=== PATIENT | female | born 1980 | race Caucasian/White ===

== ENCOUNTER → 2019-01-04 | Outpatient (REF) ==
--- NOTE | 2019-01-04 14:51 | REP ---
PARTIAL LUMBAR SPINE, THREE VIEWS: HISTORY: Degenerative disc disease. There is no acute fracture. The L4-5 and L5-S1 intervertebral discs are decreased in height consistent with disc degeneration. There are 6 mm of grade 1 spondylolisthesis of L5 on S1. This is associated with L5 pars defects. IMPRESSION: Degenerative change as described above. Electronically Signed by Yuri Bishop MD 01/04/2019 02:57 P
== END ==
LOC: M SMT 13:59
PROVIDERS: ATTEND Internal Medicine
DX: M51.36 Other intervertebral disc degeneration, lumbar region (principal); M43.17 Spondylolisthesis, lumbosacral region

== ENCOUNTER → 2020-11-11 | Outpatient (CLI) | payer OTHER ==
--- NOTE | 2020-11-14 01:02 | ECWPNPC ---
PATIENT NAME: DELMA SIMMONS : 1980 GENDER: FEMALE VISIT DATE: 11/11/2020 DISCHARGE DATE: 11/11/20921 VISIT LOCKED DATE TIME: PHYSICIAN: ANJANA BARROS RESOURCE: ANJANA BARROS REASON FOR APPOINTMENT 1. NEUROPATHY HISTORY OF PRESENT ILLNESS GENERAL: PLEASANT 40-YEAR-OLD FEMALE BEING REFERRED BY [facility], MELISSA HATFIELD FOR NEUROPATHIC PAIN OF THE LOWER EXTREMITIES WITH A HISTORY OF DIABETES MELLITUS. CURRENTLY TAKING GABAPENTIN 800 MG 4 TIMES A DAY AND LYRICA 75 MG AT BEDTIME. CONTINUES TO HAVE SEVERE LOWER EXTREMITY PAIN DESPITE MEDICATIONS. REPORTING NIGHTTIME AWAKENINGS DUE TO PAIN. ALSO SUFFERING FROM EYE ISSUES OF WHICH SHE HAS TO SEE A SPECIALIST TOMORROW SHE IS HAVING POOR VISION. ALSO REPORTING SOME FLUID RETENTION ISSUES IN THE LOWER EXTREMITIES. DENIES BOWEL OR BLADDER INCONTINENCE. HAS INSULIN PUMP. FOLLOWS WITH ENDOCRINOLOGY. FALL RISK SCREENING: SCREENING :ONE FALL WITHOUT INJURY IN THE PAST YEAR PAIN SCREENING: PATIENT HAS A COMPLAINT OF ACUTE OR CHRONIC PAIN :YES LOCATION OF PAIN:LEG(S) BOTH LEGS INTENSITY OF PAIN (SCALE OF 1 TO 10):5 WHAT DOES YOUR PAIN FEEL LIKE:ACHING, BURNING, STABBING, THROBBING, SHOOTING DURATION:CONTINOUS, CONSTANT, ALL DAY PAIN IS INCREASED BY:ACTIVITIES PAIN IS DECREASED BY:USE OF PAIN MEDICATIONS NURSING NOTE: - - -. PAIN CENTER INTAKE QUESTIONS: DO YOU HAVE A HISTORY OF MRSA? :NO DO YOU TAKE A BLOOD THINNERS? :NO DO YOU HAVE ANY BLEEDING DISORDERS? :NO ANY NEW NUMBNESS OR WEAKNESS IN YOUR LEGS OR ARMS? :NO ANY PACEMAKER,DEFIBRILLATOR, OR DORSAL COLUMN STIMULATOR? :NO DO YOU HAVE ANY RASHES OR OPEN SORES? :NO ARE YOU ALLERGIC TO IV DYE? :NO ARE YOU DIABETIC? :YES ANY NEW PROBLEMS WITH YOUR MEDICATIONS? :NO HAVE YOU RECEIVED A VACCINE IN THE PAST 30 DAYS? :NO DO YOU PLAN TO RECEIVE A VACCINE IN THE NEXT 21 DAYS? :NO DO YOU NEED ANY PRESCRIPTION? :NO DO YOU TAKE ANY IMMUNOSUPPRESSIVE MEDICATIONS? :NO CURRENT MEDICATIONS TAKING PRAVASTATIN SODIUM 40 MG TABLET 1 TABLET ORALLY ONCE A DAY TAKING FERROUS SULFATE 325 (65 FE) MG TABLET 1 TABLET ORALLY TID TAKING OMEPRAZOLE 40 MG CAPSULE DELAYED RELEASE 1 CAPSULE ORALLY BID TAKING ASPIRIN 81 81 MG TABLET DELAYED RELEASE 1 TABLET ORALLY ONCE A DAY TAKING FLUOXETINE HCL 60 MG TABLET 1 TABLET ORALLY ONCE A DAY TAKING LYRICA 75 MG CAPSULE 1 CAPSULE ORALLY BID TAKING GABAPENTIN 800 MG TABLET 1 TABLET ORALLY FOUR TIMES DAILY TAKING ADMELOG 100 UNIT/ML SOLUTION DIRECTED SUBCUTANEOUS UP TO 100 UNITS DAILY THROUGH INSULIN PUMP NOT-TAKING CYANOCOBALAMIN 1000 MCG TABLET 1 TABLET ORALLY ONCE A DAY NOT-TAKING PYRIDOXINE HCL 50 MG TABLET 1 TABLET ORALLY DAILY MEDICATION LIST REVIEWED AND RECONCILED WITH THE PATIENT PAST MEDICAL HISTORY DIABETES DIABETIC NEUROPATHY HEADACHES OVARIAN CYSTS ENDOMETREOSIS ANEMIA DENTAL CARIES ALLERGIES N.K.D.A. SURGICAL HISTORY EYE SURGERY (CYST IN LEFT EYE X2) CHOLECYSTECTOMY CYSTS ON OVARIES REMOVED BILATERAL TUBAL LIGATION 26 TEETH PULLED 06/2019 FAMILY HISTORY FATHER: , LUNG CANCER MOTHER: ALIVE, DEPRESSION, DIAGNOSED WITH DIABETES, HYPERTENSION SON(S): ALIVE DAUGHTER(S): ALIVE 2 BROTHER(S) , 2 SISTER(S) - HEALTHY. 1 SON(S) , 1 DAUGHTER(S) - HEALTHY. SON - HTN. SOCIAL HISTORY GENERAL: TOBACCO USE ARE YOU A:FORMER SMOKER LATEX QUESTIONNAIRE LATEX ALLERGY : HAVE YOU EVER DEVELOPED ANY TYPE OF REACTION AFTER HANDLING LATEX PRODUCTS SUCH RUBBER GLOVES, CONDOMS, DIAPHRAGMS, BALLOONS, SOCKS, OR UNDERWEAR?NO LATEX ALLERGY : HAVE YOU EVER DEVELOPED ANY TYPE OF REACTION DURING OR AFTER DENTAL APPOINTMENT, VAGINAL/RECTAL EXAMINATION, SURGICAL PROCEDURE, OR ANY OTHER EXPOSURE?NO LATEX RISK : HAVE YOU EVER HAD ANY DIFFICULTY BREATHING OR HIVES AFTER EATING OR HANDLING ANY FRUITS, OR VEGETABLES; SUCH KIWI, BANANAS, STONE FRUITS, OR CHESTNUTSNO LATEX RISK : DO YOU HAVE A PREVIOUS PERSONAL HISTORY OF MORE THAN NINE SURGERIES, SPINA BIFIDA, OR REPEATED CATHERIZATIONS? NO LATEX RISK : ARE YOU FREQUENTLY EXPOSED TO LATEX PRODUCTS IN YOUR OCCUPATION?NO DATE ASKED : 11/11/2020 ALCOHOL USE: NO. RECREATIONAL DRUG USE DRUG USE?NO LANGUAGE LANGUAGES SPOKEN:JAPANESE LEARNING BARRIERS / SPECIAL NEEDS BARRIERS TO LEARNING?NO HEARING IMPAIRED?NO VISION IMPAIRED?YES :CORRECTIVE LENSES COGNITIVELY IMPAIRED?NO READINESS TO LEARN?YES LEARNING PREFERENCES?YES :DEMONSTRATION/VERBAL INSTRUCTION LEARNING CAPABILITIES PRESENT?YES EMOTIONAL BARRIERS?NO SPECIAL DEVICES?YES :CANE FLOOR CLEANER NEEDED?NO MARITAL STATUS: . HOSPITALIZATION/MAJOR DIAGNOSTIC PROCEDURE SURGERY RELATED CHILD REVIEW OF SYSTEMS CONSTITUTIONAL: ANY RECENT FEVER NO . CHILLS NO . WEIGHT CHANGE OF UNKNOWN REASONS NO . GASTROENTEROLOGY: NEW UNEXPLAINABLE CHANGES IN BOWEL CONTROL NO . CONSTIPATION NO . GENITOURINARY: ANY NEW CHANGE IN BLADDER CONTROL? NO . NEUROLOGY: NEW ONSET DIZZINESS OR NEUROLOGICAL CHANGES NOT MENTIONED NO . NEW NUMBNESS OR PAIN PATTERNS NOT MENTIONED AND PERTINENT TO TODAY'S VISIT NO . CARDIOLOGY: NEW CHEST PRESSURE NO . NEW CHEST PAIN NO . RESPIRATORY: UNEXPLAINABLE COUGH NO . NEW SHORTNESS OF BREATH NO . VITAL SIGNS WT 244 LBS, HT 5'4, BMI 47.65 INDEX, BP 130/60 MM HG, HR 78 /MIN, RR 18 /MIN, TEMP 94 F, OXYGEN SAT % 98, SAFE IN ENV? (Y/N) YEST.CORINE ESCALERA. EXAMINATION GENERAL EXAMINATION: GENERALNO ACUTE DISTRESS, WELL NOURISHED AND HYDRATED. PSYCHAPPROPRIATE MOOD AND AFFECT . FACE:UNREMARKABLE. NECK:NO LYMPHADENOPATHY, SUPPLE. LUNGS:CLEAR TO AUSCULTATION BILATERALLY, NO WHEEZES, RHONCHI, RALES. HEART:NO MURMURS, REGULAR RATE AND RHYTHM. MUSCULOSKELETAL:WEAKNESS NOTED OVER LOWER EXTREMITIES. WALKS WITH ASSIST OF CANE . EXTREMITIES:1+ EDEMA NOTED OVER LOWER EXTREMITIES . NEUROLOGIC EXAM:REPORTS TENDERNESS OVER LOWER EXTREMITIES . ASSESSMENTS DIABETIC PERIPHERAL NEUROPATHY - E11.42 (PRIMARY) TREATMENT DIABETIC PERIPHERAL NEUROPATHY INCREASE LYRICA CAPSULE, 75 MG, 1 CAPSULE, ORALLY, Q8H TID, 30 DAYS, 90, REFILLS 2 DECREASE GABAPENTIN TABLET, 800 MG, 1 TABLET, ORALLY, TID, 30 DAYS, 90 TABLET, REFILLS 2 NOTES: I HAVE AGREED TO TAKE OVER MEDICATION MANAGEMENT. ADVISED TO DECREASE GABAPENTIN TO 800 MG 3 TIMES A DAY. ADVISED TO SLOWLY INCREASE LYRICA 75 MG 3 TIMES DAILY. START WITH INCREASING TO MORNING AND NIGHT X10 DAYS THEN INCREASE TO 3 TIMES DAILY IF TOLERATED. ADVISED TO CALL OUR OFFICE WITH ANY PROBLEMS. PROCEDURE CODES FA211 ESTABILISHED PATIENT [facility] CHARGE DISPOSITION & COMMUNICATION FOLLOW UP 10 WKS (REASON: MEDICATION MANAGEMENT FOLLOW-UP AFTER INCREASING LYRICA 75 MG AND DECREASING GABAPENTIN 800 MG/DIABETIC PERIPHERAL NEUROPATHY) ELECTRONICALLY SIGNED BY PERRY COLLINS ON 11/13/2020 AT 08:19 PM EST DISCLAIMER : THIS IS A VISIT SUMMARY EXTRACTED FROM THE [employer] CHART. IT IS NOT A COPY OF THE [employer] PROGRESS NOTE. WARNER
== END ==
LOC: M PAIN 08:30
PROVIDERS: ATTEND Nurse Practitioner Family
DX: E11.42 Type 2 diabetes mellitus with diabetic polyneuropathy (principal); R51.9 Headache, unspecified; D64.9 Anemia, unspecified; Z79.82 Long term (current) use of aspirin; Z79.899 Other long term (current) drug therapy; Z87.891 Personal history of nicotine dependence

== ENCOUNTER 2020-12-03 16:16 | Emergency (ER) | payer OTHER ==
[~2020-12-03] VITALS: Ht 162.6 cm; Wt 111.0 kg
[2020-12-03] MEDS ORDERED: PREG75CA2 (16:26)
[2020-12-03] MEDS ORDERED: FLUO20CA22 (16:26)
[2020-12-03] MEDS ORDERED: GABA600T4 (16:26)
[2020-12-03] MEDS ORDERED: HM V5000 PO (16:26)
[2020-12-03] MEDS ORDERED: ADME100I (16:26)
[2020-12-03] MEDS ORDERED: VITA100T43 PO (16:26)
[2020-12-03] MEDS ORDERED: ASPI81TA26 PO (16:26)
[2020-12-03] MEDS ORDERED: OMEP-221 (16:26)
--- NOTE | 2020-12-03 17:02 | REP ---
INDICATION: pain, swelling, nki COMPARISON: None. TECHNIQUE: AP and lateral views of the left forearm. FINDINGS: No acute fracture or dislocation. No subcutaneous emphysema or foreign body. IMPRESSION: No obvious abnormality by radiographic evaluation. No acute fracture or dislocation. <Electronically signed by Jesus Hartley > 12/03/20 [id number]
--- NOTE | 2020-12-03 18:05 | REPVR ---
PROCEDURE INFORMATION: Exam: US Duplex Left Upper Extremity Veins, Limited Exam date and time: 12/03/2020 5:49 PM Age: 40 years old Clinical indication: Pain; Arm, upper; Left; Additional info: Tingling, swelling pain arm, RO clot TECHNIQUE: Imaging protocol: Real-time Duplex ultrasound of the Left Upper Extremity with 2-D jay scale, color Doppler flow and spectral waveform analysis with image documentation. Limited exam focused on the left upper extremity veins. COMPARISON: No relevant prior studies available. FINDINGS: Left deep veins: Internal jugular, subclavian, axillary and brachial veins patent without thrombus. Normal compressibility, augmentation response and/or Doppler waveforms. Left superficial veins: Visualized cephalic and basilic veins patent without thrombus. Soft tissues: Unremarkable. IMPRESSION: No sonographic evidence of deep vein thrombosis. Electronically signed by: Bradley Wahl On 12/03/2020 18:05:52 PM
[2020-12-03 18:12] VITALS: BP 137/73
== END 2020-12-03 18:21 | disposition home or self-care (01) ==
LOC: M ED 16:16
DX: M25.532 Pain in left wrist (principal); E10.9 Type 1 diabetes mellitus without complications; E78.5 Hyperlipidemia, unspecified; Z79.82 Long term (current) use of aspirin; Z79.899 Other long term (current) drug therapy

== ENCOUNTER → 2021-03-07 | Outpatient (CLI) | payer OTHER ==
[~2021-03-07] MED LIST: ADME100I; ASPI81TA26 PO; FLUO20CA22; GABA600T4; HM V5000 PO; OMEP-221; PREG75CA2; VITA100T43 PO
--- NOTE | 2021-03-11 00:15 | ECWPNPC ---
PATIENT NAME: DELMA SIMMONS : 1980 GENDER: FEMALE VISIT DATE: 03/07/2021 DISCHARGE DATE: 03/07/21 1520 VISIT LOCKED DATE TIME: PHYSICIAN: ANJANA BARROS RESOURCE: ANJANA BARROS REASON FOR APPOINTMENT 1. NEUROPATHY HISTORY OF PRESENT ILLNESS GENERAL: HERE FOR MEDICATION MANAGEMENT FOR CHRONIC NEUROPATHY ASSOCIATED WITH DIABETES MELLITUS. AT HER INITIAL VISIT WE HAD HER SLOWLY DECREASE AND DISCONTINUE GABAPENTIN AND START LYRICA 75 MG 3 TIMES DAILY. STATES SHE FINDS THE MEDICINE SOMEWHAT HELPFUL BUT SHE FEELS LYRICA IS MAKING HER FEEL A LITTLE LOOPY. DISCUSSED DECREASING LYRICA TO 50 MG 3 TIMES A DAY AND ADDING GABAPENTIN 300 MG AT BEDTIME. -. FALL RISK SCREENING: SCREENING 2-3 FALL THIS YEAR, NO MAJOR INJURIES, STATED THAT SHE DID NOT GO TO THE ER FOR ANY OF HER FALLS. PAIN SCREENING: PATIENT HAS A COMPLAINT OF ACUTE OR CHRONIC PAIN :YES LOCATION OF PAIN:LEG(S) INTENSITY OF PAIN (SCALE OF 1 TO 10):6 WHAT DOES YOUR PAIN FEEL LIKE:ACHING, SHOOTING DURATION:CONTINOUS, CONSTANT, ALL DAY PAIN IS INCREASED BY:ACTIVITIES PAIN IS DECREASED BY:USE OF PAIN MEDICATIONS, OTHERS RESTING NURSING NOTE: -. PAIN CENTER INTAKE QUESTIONS: DO YOU HAVE A HISTORY OF MRSA? :NO DO YOU TAKE A BLOOD THINNERS? :NO ASPIRIN 81 81 MG DO YOU HAVE ANY BLEEDING DISORDERS? :NO ANY NEW NUMBNESS OR WEAKNESS IN YOUR LEGS OR ARMS? :YES BOTH HANDS ANY PACEMAKER,DEFIBRILLATOR, OR DORSAL COLUMN STIMULATOR? :NO DO YOU HAVE ANY RASHES OR OPEN SORES? :NO ARE YOU ALLERGIC TO IV DYE? :NO ARE YOU DIABETIC? :YES ANY NEW PROBLEMS WITH YOUR MEDICATIONS? :NO HAVE YOU RECEIVED A VACCINE IN THE PAST 30 DAYS? :NO DO YOU PLAN TO RECEIVE A VACCINE IN THE NEXT 21 DAYS? :NO DO YOU NEED ANY PRESCRIPTION? :NO DO YOU TAKE ANY IMMUNOSUPPRESSIVE MEDICATIONS? :NO CURRENT MEDICATIONS TAKING PRAVASTATIN SODIUM 40 MG TABLET 1 TABLET ORALLY ONCE A DAY TAKING FERROUS SULFATE 325 (65 FE) MG TABLET 1 TABLET ORALLY TID TAKING OMEPRAZOLE 40 MG CAPSULE DELAYED RELEASE 1 CAPSULE ORALLY BID TAKING ASPIRIN 81 81 MG TABLET DELAYED RELEASE 1 TABLET ORALLY ONCE A DAY TAKING FLUOXETINE HCL 60 MG TABLET 1 TABLET ORALLY ONCE A DAY TAKING ADMELOG 100 UNIT/ML SOLUTION DIRECTED SUBCUTANEOUS UP TO 100 UNITS DAILY THROUGH INSULIN PUMP TAKING LYRICA 75 MG CAPSULE 1 CAPSULE ORALLY Q8H TID TAKING GABAPENTIN 800 MG TABLET 1 TABLET ORALLY TID NOT-TAKING CYANOCOBALAMIN 1000 MCG TABLET 1 TABLET ORALLY ONCE A DAY NOT-TAKING PYRIDOXINE HCL 50 MG TABLET 1 TABLET ORALLY DAILY MEDICATION LIST REVIEWED AND RECONCILED WITH THE PATIENT PAST MEDICAL HISTORY DIABETES DIABETIC NEUROPATHY HEADACHES OVARIAN CYSTS ENDOMETREOSIS ANEMIA DENTAL CARIES CARPTAL TUNNEL ALLERGIES N.K.D.A. SOCIAL HISTORY GENERAL: TOBACCO USE ARE YOU A:FORMER SMOKER 10 YEARS AGO LATEX QUESTIONNAIRE LATEX ALLERGY : HAVE YOU EVER DEVELOPED ANY TYPE OF REACTION AFTER HANDLING LATEX PRODUCTS SUCH RUBBER GLOVES, CONDOMS, DIAPHRAGMS, BALLOONS, SOCKS, OR UNDERWEAR?NO LATEX ALLERGY : HAVE YOU EVER DEVELOPED ANY TYPE OF REACTION DURING OR AFTER DENTAL APPOINTMENT, VAGINAL/RECTAL EXAMINATION, SURGICAL PROCEDURE, OR ANY OTHER EXPOSURE?NO LATEX RISK : HAVE YOU EVER HAD ANY DIFFICULTY BREATHING OR HIVES AFTER EATING OR HANDLING ANY FRUITS, OR VEGETABLES; SUCH KIWI, BANANAS, STONE FRUITS, OR CHESTNUTSNO LATEX RISK : DO YOU HAVE A PREVIOUS PERSONAL HISTORY OF MORE THAN NINE SURGERIES, SPINA BIFIDA, OR REPEATED CATHERIZATIONS? NO LATEX RISK : ARE YOU FREQUENTLY EXPOSED TO LATEX PRODUCTS IN YOUR OCCUPATION?NO DATE ASKED : 03/07/2021 ALCOHOL USE: NO. RECREATIONAL DRUG USE DRUG USE?NO LANGUAGE LANGUAGES SPOKEN:[place]YR[place] LEARNING BARRIERS / SPECIAL NEEDS BARRIERS TO LEARNING?NO HEARING IMPAIRED?YES : BOTH EARS VISION IMPAIRED?YES :CORRECTIVE LENSES COGNITIVELY IMPAIRED?NO READINESS TO LEARN?YES LEARNING PREFERENCES?YES :DEMONSTRATION/VERBAL INSTRUCTION LEARNING CAPABILITIES PRESENT?YES EMOTIONAL BARRIERS?NO SPECIAL DEVICES?YES :CANE ASSISTANT FEDERAL PUBLIC DEFENDER NEEDED?NO MARITAL STATUS: . REVIEW OF SYSTEMS CONSTITUTIONAL: ANY RECENT FEVER NO . CHILLS NO . WEIGHT CHANGE OF UNKNOWN REASONS NO . GASTROENTEROLOGY: NEW UNEXPLAINABLE CHANGES IN BOWEL CONTROL NO . CONSTIPATION NO . GENITOURINARY: ANY NEW CHANGE IN BLADDER CONTROL? NO . NEUROLOGY: NEW ONSET DIZZINESS OR NEUROLOGICAL CHANGES NOT MENTIONED NO . NEW NUMBNESS OR PAIN PATTERNS NOT MENTIONED AND PERTINENT TO TODAY'S VISIT NO . CARDIOLOGY: NEW CHEST PRESSURE NO . PATIENT DENIES NO . RESPIRATORY: UNEXPLAINABLE COUGH NO . NEW SHORTNESS OF BREATH NO . VITAL SIGNS WT 243 LBS, HT 5'4, BMI 47.45 INDEX, BP 148/68 MM HG, HR 71 /MIN, RR 18 /MIN, TEMP 97 F, OXYGEN SAT % 97%, SAFE IN ENV? (Y/N) YEST.CORINE ESCALERA. EXAMINATION GENERAL EXAMINATION: GENERALAWAKE,ALERT ,PLEASANT . PSYCHAFFECT NORMAL . LUNGS:LUNG ESTRELLA ARE CLEAR TO AUSCULTATION BILATERALLY. GOOD MOVEMENT OF AIR . HEART:S1, S2 IN A REGULAR RATE AND RHYTHM. NO SIGNIFICANT MURMURS, RUBS OR GALLOPS NOTED . ASSESSMENTS DIABETIC PERIPHERAL NEUROPATHY - E11.42 (PRIMARY) TREATMENT DIABETIC PERIPHERAL NEUROPATHY STOP LYRICA CAPSULE, 75 MG, 1 CAPSULE, ORALLY, Q8H TID START LYRICA CAPSULE, 50 MG, 1 CAPSULE, ORALLY, Q8H TID MDD3, 30 DAYS, 90, REFILLS 2 START GABAPENTIN CAPSULE, 300 MG, 1 CAPSULE, ORALLY, BEFORE BEDTIME, 30 DAY(S), 30, REFILLS 2 NOTES: PRINTED INFORMATION ON NEW MEDICATION FOR PATIENT ConstantinoCORINE ESCALERA. PROCEDURE CODES FA211 ESTABILISHED PATIENT [facility] CHARGE DISPOSITION & COMMUNICATION FOLLOW UP 2 MONTHS (REASON: MEDICATION MANAGEMENT) ELECTRONICALLY SIGNED BY PERRY COLLINS ON 03/10/2021 AT 02:03 PM EDT DISCLAIMER : THIS IS A VISIT SUMMARY EXTRACTED FROM THE [employer] CHART. IT IS NOT A COPY OF THE [employer] PROGRESS NOTE. MTDD
== END ==
LOC: M PAIN 14:15
PROVIDERS: ATTEND Nurse Practitioner Family
DX: E11.42 Type 2 diabetes mellitus with diabetic polyneuropathy (principal); R51.9 Headache, unspecified; N80.9 Endometriosis, unspecified; D64.9 Anemia, unspecified; K02.9 Dental caries, unspecified; Z79.82 Long term (current) use of aspirin; Z79.899 Other long term (current) drug therapy